=== PATIENT | female | born 2000 | race Caucasian/White ===

== ENCOUNTER 2023-01-08 20:21 | Emergency (ER) | payer BC, MEDICAID ==
[~2023-01-08] VITALS: Ht 160 cm; Wt 87.9 kg
[2023-01-08] MEDS ORDERED: DICYCLOMINE 10 MG/ML (BENTYL) 2 ML AMP IM STA (20:42)
[2023-01-08] MEDS ORDERED: ONDANSETRON 4 MG/2 ML (SDV) Z0FRAN IVP STA (20:42)
[2023-01-08] MEDS ORDERED: NS IV 1000 ML 1,000 ML IV STA (20:42)
--- NOTE | 2023-01-08 20:50 | ED Abdominal Pain ---
General Chief Complaint: Abdominal/GI Problems Stated Complaint: DIZZY,NAUSEA,DRY HEAVING,SOB Nursing Triage Note: patient complaint of lower abdominal pain, for two days. patient states she is "vomitting but nothing is coming out" Source of Information: Patient History of Present Illness Date Seen by Provider: Jan 08, 2023 Time Seen by Provider: 20:32 Initial Comments 22-year-old female presenting with complaints of 2 days of nausea with dry heaves and lower abdominal pain. She just finished antibiotics for strep throat 3 days ago. She just moved here to [place] and has not established care with a primary care provider. She denies any surgeries on her abdomen in the past. She just came off of her last menstrual cycle 4 days ago. She denies any pain or burning with urination, vaginal bleeding, vaginal discharge, constipation, d iarrhea, fever, chills. Timing/Duration: 2-3 Days Severity/Quality: Severe (8 out of 10 ), Aching Location: RLQ, LLQ Radiation: No Radiation Activities at Onset: None Modifying Factors: Worsens With Movement Associated Symptoms: Back Pain (feels like the low pelvic pain goes through to her back at times); No Chest Pain, No Diaphoresis, No Fever/Chills, No Fatigue, No Headache, No Heartburn; Nausea/Vomiting (dry heaves with nausea); No Rash, No Shortness of Air, No Swelling/Mass in Abdomen, No Syncope, No Weakness Allergies and Home Medications Allergies Coded Allergies: No Known Drug Allergies (Unverified , 01/08/23) Patient Home Medication List Home Medication List Reviewed: Yes Dicyclomine HCl (Dicyclomine HCl) 10 Mg Capsule, 10 MG PO Q6H PRN for abdominal pain/nausea Prescribed by: WILMER DUPONT on 01/08/232201 Ondansetron (Ondansetron Odt) 4 Mg Tab.rapdis, 4 MG PO Q6H PRN for NAUSEA/VOMITING Prescribed by: WILMER DOMINGUEZRT on 01/08/232201 Review of Systems Review of Systems Constitutional: No chills, No fever EENTM: See HPI Respiratory: No Symptoms Reported Cardiovascular: No Symptoms Reported Gastrointestinal: See HPI Genitourinary: See HPI; Denies Hematuria, Denies Pain Musculoskeletal: see HPI Skin: No change in color, No rash Psychiatric/Neurological: Anxiety Endocrine: No Symptoms Reported Hematologic/Lymphatic: No Symptoms Reported Past Zspsuvb-Cuzwjk-Lzozrx Hx Immunizations Up To Date Influenza Vaccine Up-to-Date: No; Not Current First/Initial COVID19 Vaccinat: na Second COVID19 Vaccination Buck: na Physical Exam Vital Signs Vital Signs - First Documented 01/08/23 20:35 Temp 36.9 Pulse 84 Resp 20 B/P (MAP) 134/72 (92) Pulse Ox 99 O2 Delivery Room Air Capillary Refill : Less Than 3 Seconds Height/Weight/BMI Height: '" Weight: lbs. oz. kg; 34.00 BMI Method: General Appearance: WD/WN, no apparent distress, obese, other (appears anxious) HEENT: PERRL/EOMI; No photophobia; pharyngeal erythema; No tonsillar exudate; other (Enlarged tonsils with erythema but no exudate.) Neck: non-tender, full range of motion, supple, normal inspection Respiratory: chest non-tender, lungs clear, normal breath sounds, no respiratory distress, no accessory muscle use Cardiovascular: normal peripheral pulses, regular rate, rhythm Gastrointestinal: normal bowel sounds, soft, no pulsatile mass; No distended, No guarding, No rebound; tenderness (complains of tenderness with palpation along lower abdomen in RLQ and LLQ. No rebound or guarding) Rectal: deferred Extremities: normal range of motion, non-tender, normal capillary refill Back: no CVA tenderness Neurologic/Psychiatric: alert, oriented x 3 Skin: normal color, warm/dry Progress/Results/Core Measures Results/Orders Lab Results Laboratory Tests Test 01/08/23 20:50 01/08/23 20:55 Range/Units Urine Color YELLOW Urine Clarity SL CLOUDY Urine pH 7.5 5-9 Urine Specific [place] 1.015 L 1.016-1.022 Urine Protein NEGATIVE NEGATIVE Urine Glucose (UA) NEGATIVE NEGATIVE Urine Ketones NEGATIVE NEGATIVE Urine Nitrite NEGATIVE NEGATIVE Urine Bilirubin NEGATIVE NEGATIVE Urine Urobilinogen 0.2 < = 1.0 MG/DL Urine Leukocyte Esterase NEGATIVE NEGATIVE Urine RBC (Auto) NEGATIVE NEGATIVE Urine RBC NONE /HPF Urine WBC 2-5 /HPF Urine Squamous Epithelial Cells 10-25 H /HPF Urine Crystals NONE /LPF Urine Bacteria TRACE /HPF Urine Casts NONE /LPF Urine Mucus SMALL H /LPF Urine Culture Indicated NO White Blood Count 15.7 H 4.3-11.0 10^3/uL Red Blood Count 5.18 H 3.80-5.11 10^6/uL Hemoglobin 14.2 11.5-16.0 g/dL Hematocrit 43 35-52 % Mean Corpuscular Volume 83 80-99 fL Mean Corpuscular Hemoglobin 27 25-34 pg Mean Corpuscular Hemoglobin Concent 33 32-36 g/dL Red Cell Distribution Width 12.9 10.0-14.5 % Platelet Count 309 130-400 10^3/uL Mean Platelet Volume 9.9 9.0-12.2 fL Immature Granulocyte % (Auto) 0 % Neutrophils (%) (Auto) 56 42-75 % Lymphocytes (%) (Auto) 35 12-44 % Monocytes (%) (Auto) 6 0-12 % Eosinophils (%) (Auto) 2 0-10 % Basophils (%) (Auto) 1 0-10 % Neutrophils # (Auto) 8.7 H 1.8-7.8 10^3/uL Lymphocytes # (Auto) 5.6 H 1.0-4.0 10^3/uL Monocytes # (Auto) 1.0 0.0-1.0 10^3/uL Eosinophils # (Auto) 0.3 0.0-0.3 10^3/uL Basophils # (Auto) 0.1 0.0-0.1 10^3/uL Immature Granulocyte # (Auto) 0.1 0.0-0.1 10^3/uL Neutrophils % (Manual) 55 % Lymphocytes % (Manual) 36 % Monocytes % (Manual) 7 % Eosinophils % (Manual) 2 % Platelet Estimate NORMAL Blood Morphology Comment NORMAL Sodium Level 138 135-145 MMOL/L Potassium Level 3.5 L 3.6-5.0 MMOL/L Chloride Level 102 98-107 MMOL/L Carbon Dioxide Level 27 21-32 MMOL/L Anion Gap 9 5-14 MMOL/L Blood Urea Nitrogen 8 7-18 MG/DL Creatinine 0.91 0.60-1.30 MG/DL Estimat Glomerular Filtration Rate 91 BUN/Creatinine Ratio 9 Glucose Level 85 70-105 MG/DL Calcium Level 9.3 8.5-10.1 MG/DL Corrected Calcium 9.3 8.5-10.1 MG/DL Total Bilirubin 0.2 0.1-1.0 MG/DL Aspartate Amino Transf (AST/SGOT) 20 5-34 U/L Alanine Aminotransferase (ALT/SGPT) 30 0-55 U/L Alkaline Phosphatase 121 40-136 U/L Total Protein 7.3 6.4-8.2 GM/DL Albumin 4.0 3.2-4.5 GM/DL Lipase 26 8-78 U/L My Orders Orders - WILMER DUPONT MD Comprehensive Metabolic Panel (01/08/23 20:42) Lipase (01/08/23 20:42) Ua Culture If Indicated (01/08/23 20:42) Ed Iv/Invasive Line Start (01/08/23 20:42) Cbc With Automated Diff (01/08/23 20:42) Ct Abdomen/Pelvis W (01/08/23 20:42) Urine Bedside (01/08/23 20:42) Ns Iv 1000 Ml (Sodium Chloride 0.9%) (01/08/23 20:42) Ondansetron Injection (Zofran Injectio (01/08/23 20:42) Dicyclomine Injection (Bentyl Injection) (01/08/23 20:42) Iohexol Injection (Omnipaque 350 Mg/Ml 1 (01/08/23 21:00) Received Contrast (Hold Metformin- Contr (01/08/23 21:00) Sodium Chloride Flush (Catheter Flush Sy (01/08/23 21:00) Ns (Ivpb) (Sodium Chloride 0.9% Ivpb Bag (01/08/23 21:00) Manual Differential (01/08/23 20:55) Rx-Ondansetron Po (Rx-Zofran Po) (01/08/23 22:00) Rx-Dicyclomine Capsule (Rx-Bentyl Capsul (01/08/23 22:00) Medications Given in ED Current Medications Medications Dose Ordered Sig/Sherif Route Start Time Stop Time Status Last Admin Dose Admin Iohexol 100 ml ONCE ONCE IV 01/08/23 21:00 01/08/23 21:01 DC 01/08/23 21:21 80 ML Sodium Chloride 10 ml NEEDED PRN IV 01/08/23 21:00 01/08/23 21:21 10 ML Sodium Chloride 100 ml ONCE ONCE IV 01/08/23 21:00 01/08/23 21:01 DC 01/08/23 21:21 100 ML Vital Signs/I&O 01/08/23 20:35 Temp 36.9 Pulse 84 Resp 20 B/P (MAP) 134/72 (92) Pulse Ox 99 O2 Delivery Room Air Blood Pressure Mean: 92 Progress Progress Note #1: Progress Note Potential diagnosis of gastritis, gastroenteritis, constipation, ovarian cyst, appendicitis, cystitis, pyelonephritis. Obtain urine to do a urine test as well as look at the urinalysis for signs of infection. Peripheral IV access to be able to give normal saline 1 L IV fluid bolus for hydration, Zofran 4 mg IV for nausea and vomiting, Bentyl 20 mg IM for abdominal pain and cramping. Send labs for complete blood count, comprehensive metabolic profile, lipase. CT scan of the abdomen pelvis with IV contrast looking for signs of appendicitis, diverticulitis, colitis, ovarian cyst, free fluid in the pelvis. Progress Note #2: Progress Note Complete blood count showed mild elevation of her white blood cells to 12.7. Her comprehensive metabolic profile did not show any acute significant abnormality. Her urinalysis was not showing nitrites, leukocyte esterase, bacteria to indicate infection. Awaiting CT report from radiologist but my personal review and interpretation was the CT abdomen/pelvis with IV contrast d id not show free air or obstruction. No inflammation or fluid build up in RLQ to indicate appendicitis. Progress Note #3: Time: 21:48 Progress Note I reviewed the radiologist report at [address] scan of the abdomen and pelvis with IV contrast. There was no acute appendicitis or bowel obstruction. She did have some cholelithiasis but no indications of cholecystitis. Patient reports that her symptoms were resolved with treatment here in the ED. Counseled on follow-up and return precautions. Advised to take Zofran 4 mg every 6 hours. Nausea and vomiting. She can also take dicyclomine 10 mg p.o. every 6 hours as needed abdominal pain/nausea. Encouraged to try getting some evkp-otf-uvnmiud probiotics to help balance out the bacteria in her gut since she was just on antibiotics. In terms of the gallstones that were seen on CT she should try and follow a low-fat bland diet. If she continues to have symptoms after she gets established with a primary care provider they could see about ordering an ultrasound of her gallbladder or possibly a nuclear medicine test of her gallbladder. Given information for the [facility] clinic for follow-up. Diagnostic Imaging Diagonstic Imaging: CT Plain Films/CT/US/NM/MRI: abdomen, pelvis Comments NAME: ROSI COOK REC#: [id number] PT STATUS: REG ER : 2000 PHYSICIAN: WILMER DUPONT MD ADMIT DATE: 01/08/23/ER FS Draft Date of Exam:01/08/23 CT ABDOMEN/PELVIS W PROCEDURE: CT abdomen and pelvis with contrast. TECHNIQUE: Multiple contiguous axial images were obtained through the abdomen and pelvis after administration of intravenous contrast. Auto Exposure Controls were utilized during the CT exam to meet ALARA standards for radiation dose reduction. All CT scans use one or more of the following dose optimizing techniques: automated exposure control, MA and/or KvP adjustment based on patient size and exam type or iterative reconstruction. INDICATION: Nausea and vomiting FINDINGS: The appendix well visualized and normal. There is no small or large bowel obstruction. No abnormal fecal loading. No pneumatosis or free gas. There are multiple stones within the nondistended gallbladder. The gallbladder wall non-thickened. No pericholecystic edema. The liver and bile ducts normal. Spleen, adrenals, pancreas, and unobstructed kidneys appeared normal. The aortoiliac and mesenteric vessels patent and nonaneurysmal. No perienteric or pericolonic edema. No focal inflammatory changes identified. The lung bases and bony structures nonacute. Unobstructed kidneys normal. IMPRESSION: Cholelithiasis. No acute appearing abdominal pelvic abnormality. Dictated on workstation # [id number] Dict: 01/08/232126 Trans: 01/08/232145 [facility] [id number] Interpreted by: ISHAAN GREENFIELD Electronically signed by: Reviewed: Reviewed by Me (I reviewed the radiologist report at 3169.) Departure Impression Primary Impression: Lower abdominal pain Additional Impressions: Nausea Gallstones Disposition: 01 HOME, SELF-CARE Condition: Stable Departure-Patient Inst. Decision time for Depature: 21:58 Referrals: NO,LOCAL PHYSICIAN (PCP) Primary Care Physician [facility] Patient Instructions: Gallstones ED, Gallbladder Diet, Nausea and Vomiting, Adult ED Add. Discharge Instructions: Stay well-hydrated and drink plenty of fluids. You can use the dissolving nausea tablets to help with keep your stomach settled. The Bentyl or dicyclomine will help with abdominal pain and spasms. It also can help with nausea. Try and follow a low-fat bland diet in case any of those symptoms are from your gallbladder. Get established with a primary care provider and follow-up. If you are continuing of symptoms they may want to get you set up for an ultrasound of your gallbladder or a nuclear medicine scan of your gallbladder to look for the gallbladder not functioning correctly. Consider taking probiotics to help Restore the good bacteria that are usually in your gut helping with digestion. The antibiotics will kill off your good gut bacteria as well as the infection you had in your throat and tonsils. All discharge instructions reviewed with patient and/or family. Voiced understanding. Scripts Ondansetron (Ondansetron Odt) 4 Mg Tab.rapdis 4 MG PO Q6H PRN for NAUSEA/VOMITING for 3 Days, #12 TAB 0 Refills Prov: WILMER DUPONT MD 01/08/23 Dicyclomine HCl (Dicyclomine HCl) 10 Mg Capsule 10 MG PO Q6H PRN for abdominal pain/nausea for 7 Days, #28 CAP 0 Refills Prov: WILMER DUPONT MD 01/08/23 WILMER DUPONT MD Jan 08, 2023 20:50
[2023-01-08] MEDS ORDERED: HOLD METFORMIN - RECEIVED CONTRAST 20 ML VIAL IV SCH (21:00)
[2023-01-08] MEDS ORDERED: NS 100 ML (IVPB) BAG IV ONE (21:00)
[2023-01-08] MEDS ORDERED: IOHEXOL 350 MG/ML 100 ML (OMNIPAQUE 350) VIAL IV ONE (21:00)
[2023-01-08] MEDS ORDERED: CATHETER FLUSH 10 ML SYR IV PRN (21:00)
[2023-01-08 21:10] LABS: BASOPHILS # (AUTO) 0.1 10^3/uL (0.0-0.1); BASOPHILS % (AUTO) 1 % (0-10); EOSINOPHILS # (AUTO) 0.3 10^3/uL (0.0-0.3); EOSINOPHILS % (AUTO) 2 % (0-10); HEMATOCRIT 43 % (35-52); HEMOGLOBIN 14.2 g/dL (11.5-16.0); LYMPHOCYTES # (AUTO) 5.6 10^3/uL (1.0-4.0); LYMPHOCYTES % (AUTO) 35 % (12-44); MEAN CORPUSCULAR HEMOGLOBIN 27 pg (25-34); MEAN CORPUSCULAR HGB CONC 33 g/dL (32-36); MEAN CORPUSCULAR VOLUME 83 fL (80-99); MEAN PLATELET VOLUME 9.9 fL (9.0-12.2); MONOCYTES % (AUTO) 6 % (0-12); NEUTROPHILS # (AUTO) 8.7 10^3/uL (1.8-7.8); NEUTROPHILS % (AUTO) 56 % (42-75); PLATELET COUNT 309 10^3/uL (130-400); WHITE BLOOD COUNT 15.7 10^3/uL (4.3-11.0)
[2023-01-08 21:12] LABS: BILIRUBIN,URINE NEGATIVE (NEGATIVE); CLARITY,URINE SL CLOUDY; COLOR,URINE YELLOW; GLUCOSE, URINE (UA) NEGATIVE (NEGATIVE); KETONES,URINE NEGATIVE (NEGATIVE); LEUKOCYTE ESTERASE ,URINE NEGATIVE (NEGATIVE); NITRITE,URINE NEGATIVE (NEGATIVE); PH,URINE 7.5 (5-9); PROTEIN,URINE NEGATIVE (NEGATIVE)
[2023-01-08 21:20] LABS: BACTERIA,URINE TRACE /HPF
[2023-01-08 21:33] LABS: EOSINOPHILS % (MANUAL) 2 %; LYMPHOCYTES % (MANUAL) 36 %; MONOCYTES % (MANUAL) 7 %; NEUTROPHILS % (MANUAL) 55 %; PLATELET ESTIMATE NORMAL; RBC MORPH NORMAL
[2023-01-08 21:34] LABS: BILIRUBIN,TOTAL 0.2 MG/DL (0.1-1.0); CALCIUM 9.3 MG/DL (8.5-10.1); CREATININE SERUM 0.91 MG/DL (0.60-1.30); POTASSIUM 3.5 MMOL/L (3.6-5.0)
[2023-01-08 21:35] LABS: TOTAL PROTEIN 7.3 GM/DL (6.4-8.2)
--- NOTE | 2023-01-08 21:46 | Diagnostic Imaging Report ---
PROCEDURE: CT abdomen and pelvis with contrast. TECHNIQUE: Multiple contiguous axial images were obtained through the abdomen and pelvis after administration of intravenous contrast. Auto Exposure Controls were utilized during the CT exam to meet ALARA standards for radiation dose reduction. All CT scans use one or more of the following dose optimizing techniques: automated exposure control, MA and/or KvP adjustment based on patient size and exam type or iterative reconstruction. INDICATION: Nausea and vomiting FINDINGS: The appendix well visualized and normal. There is no small or large bowel obstruction. No abnormal fecal loading. No pneumatosis or free gas. There are multiple stones within the nondistended gallbladder. The gallbladder wall non-thickened. No pericholecystic edema. The liver and bile ducts normal. Spleen, adrenals, pancreas, and unobstructed kidneys appeared normal. The aortoiliac and mesenteric vessels patent and nonaneurysmal. No perienteric or pericolonic edema. No focal inflammatory changes identified. The lung bases and bony structures nonacute. Unobstructed kidneys normal. IMPRESSION: Cholelithiasis. No acute appearing abdominal pelvic abnormality. Dictated by: Dictated on workstation # [id number]
[2023-01-08] MEDS ORDERED: RX-DICYCLOMINE 10 MG (BENTYL) CAP PPK#4 PO PRN (22:00)
[2023-01-08] MEDS ORDERED: RX-ONDANSETRON 4 MG ODT (ZOFRAN) PPK #4 PO PRN (22:00)
[2023-01-08] MEDS ORDERED: ONDA4TAB11 PO (22:02)
[2023-01-08] MEDS ORDERED: DICY10CA12 PO (22:02)
[2023-01-08 22:15] VITALS: BP 134/72
== END 2023-01-08 22:20 | disposition home or self-care (01) ==
LOC: ER FS 20:24
DX: K80.20 Calculus of gallbladder without cholecystitis without obstruction (principal); D72.829 Elevated white blood cell count, unspecified; Z28.310 Unvaccinated for COVID-19
CPT/HCPCS: 36415; 74177; 80053; 81000; 83690; 84703; 85007; 85027

== ENCOUNTER 2023-02-17 18:21 | Emergency (ER) | payer SELFPAY ==
[~2023-02-17] VITALS: Ht 160 cm; Wt 87.0 kg
[~2023-02-17 18:21] MED LIST: DICY10CA12 PO; ONDA4TAB11 PO
[2023-02-17 18:40] LABS: BILIRUBIN,URINE NEGATIVE (NEGATIVE); CLARITY,URINE CLEAR; COLOR,URINE YELLOW; GLUCOSE, URINE (UA) NEGATIVE (NEGATIVE); KETONES,URINE NEGATIVE (NEGATIVE); LEUKOCYTE ESTERASE ,URINE NEGATIVE (NEGATIVE); NITRITE,URINE NEGATIVE (NEGATIVE); PROTEIN,URINE NEGATIVE (NEGATIVE)
[2023-02-17 18:43] LABS: BACTERIA,URINE MODERATE /HPF; SQUAMOUS EPITHELIAL CELL,UR >50 /HPF
[2023-02-17] MEDS ORDERED: CEPH500T PO (18:57)
--- NOTE | 2023-02-17 18:58 | ED Back Pain ---
General Chief Complaint: - Reproductive Stated Complaint: LOWER BACK PAIN Nursing Triage Note: Patient reports she is approximately 6 weeks , states she has had lower mid back and burning with urination for 3 days. Source of Information: Patient Exam Limitations: No Limitations History of Present Illness Date Seen by Provider: Feb 17, 2023 Time Seen by Provider: 18:43 Initial Comments 23-year-old female who is 6 weeks comes in today for low back burning and dysuria for 3 days. No vaginal symptoms including discharge odor or bleeding. No anterior abdominal pain or cramping. No fevers chills nausea vomiting. All other systems reviewed and negative except documented per HPI. Voice recognition software was used to help create this chart Allergies and Home Medications Allergies Coded Allergies: No Known Drug Allergies (Unverified , 01/08/23) Patient Home Medication List Home Medication List Reviewed: Yes Dicyclomine HCl (Dicyclomine HCl) 10 Mg Capsule, 10 MG PO Q6H PRN for abdominal pain/nausea Prescribed by: WILMER DOMINGUEZRT on 01/08/232201 Ondansetron (Ondansetron Odt) 4 Mg Tab.rapdis, 4 MG PO Q6H PRN for NAUSEA/VOMITING Prescribed by: WILMER Cleaning ENYART on 01/08/232201 Review of Systems Constitutional: see HPI Past Bwitvrl-Uzxumv-Daembq Hx Patient Social History Tobacco Use?: No Substance use?: No Alcohol Use?: No Pt feels they are or have been: No Immunizations Up To Date First/Initial COVID19 Vaccinat: na Second COVID19 Vaccination Buck: na Third COVID19 Vaccination Date: na Family Medical History Reviewed Nursing Family Hx No Pertinent Family Hx Physical Exam Vital Signs Vital Signs - First Documented 02/17/23 18:29 Temp 36.2 Pulse 84 Resp 16 B/P (MAP) 123/55 (77) Pulse Ox 100 O2 Delivery Room Air Capillary Refill : Less Than 3 Seconds Height, Weight, BMI Height: '" Weight: lbs. oz. kg; 33.00 BMI Method: General Appearance: No Apparent Distress, WD/WN HEENT: Normal ENT Inspection, Pharynx Normal Neck: Full Range of Motion, Non Tender Cardiovascular: Regular Rate, Rhythm, No Murmur Respiratory: Chest Non Tender, Lungs Clear, Normal Breath Sounds Gastrointestinal: Normal Bowel Sounds, No Organomegaly, Non Tender, Soft Extremity: Normal Capillary Refill, Non Tender, No Calf Tenderness Neurologic/Psychiatric: Alert, Oriented x3 Skin: Normal Color, Warm/Dry Progress/Results/Core Measures Results/Orders Lab Results Laboratory Tests Test 02/17/23 18:29 Range/Units Urine Color YELLOW Urine Clarity CLEAR Urine pH 6.0 5-9 Urine Specific [place] 1.020 1.016-1.022 Urine Protein NEGATIVE NEGATIVE Urine Glucose (UA) NEGATIVE NEGATIVE Urine Ketones NEGATIVE NEGATIVE Urine Nitrite NEGATIVE NEGATIVE Urine Bilirubin NEGATIVE NEGATIVE Urine Urobilinogen 0.2 < = 1.0 MG/DL Urine Leukocyte Esterase NEGATIVE NEGATIVE Urine RBC (Auto) NEGATIVE NEGATIVE Urine RBC NONE /HPF Urine WBC 5-10 H /HPF Urine Squamous Epithelial Cells >50 H /HPF Urine Crystals NONE /LPF Urine Bacteria MODERATE H /HPF Urine Casts NONE /LPF Urine Mucus LARGE H /LPF Urine Culture Indicated NO My Orders Orders - MERLINLO BORJAS DO Ua Culture If Indicated (02/17/23 18:34) Urine Bedside (02/17/23 18:34) Vital Signs/I&O 02/17/23 18:29 Temp 36.2 Pulse 84 Resp 16 B/P (MAP) 123/55 (77) Pulse Ox 100 O2 Delivery Room Air Blood Pressure Mean: 77 Departure Communication (Admissions) Patient is hemodynamically stable. She has no anterior pain, no vaginal symptoms. No discharge or odor or bleeding. She has low back pain and dysuria. Urine consistent with urinary tract infection of the catch is somewhat dirty. We will treat her conservatively with Keflex. Given her first dose p.o. here and discharged with a prescription for the same. Discharged in stable condition and close follow-up. Impression Primary Impression: UTI (urinary tract infection) Qualified Codes: N30.01 - Acute cystitis with hematuria Disposition: HOME, SELF-CARE Condition: Stable Departure-Patient Inst. Referrals: NO,LOCAL PHYSICIAN (PCP) Primary Care Physician Patient Instructions: Urinary Tract Infection, Adult ED Add. Discharge Instructions: Take the antibiotics as prescribed until they are gone. Increase your fluids at home and rest. Should your symptoms persist I recommend you follow-up with your primary doctor. Establish care with an OB at your earliest convenience. All discharge instructions reviewed with patient and/or family. Voiced un derstanding. Scripts Cephalexin (Cephalexin) 500 Mg Tablet 500 MG PO BID for 7 Days, #14 TAB Prov: LO BOYER DO 02/17/23 LO BOYER DO Feb 17, 2023 18:58
[2023-02-17] MEDS ORDERED: CEPHALEXIN 250 MG (KEFLEX) CAP PO SCH (19:00)
[2023-02-17 19:04] VITALS: BP 120/61
== END 2023-02-17 19:04 | disposition home or self-care (01) ==
LOC: EDUNIT# 18:21 → ER FS 18:23
DX: O23.41 Unspecified infection of urinary tract in pregnancy, first trimester (principal); N39.0 Urinary tract infection, site not specified; Z3A.01 Less than 8 weeks gestation of pregnancy; Z28.310 Unvaccinated for COVID-19
CPT/HCPCS: 81000; 84703; 99283

== ENCOUNTER → 2023-05-20 | Outpatient (CLI) | payer MEDICAID ==
[~2023-05-20] MED LIST changes: +CEPH500T PO
--- NOTE | 2023-05-20 18:28 | Diagnostic Imaging Report ---
INDICATION: Left ankle pain. AP, oblique, and lateral views of the left ankle are obtained. FINDINGS: No fracture or acute bony abnormality is seen. Joint spaces are unremarkable. IMPRESSION: Negative left ankle. Dictated by: Dictated on workstation # [id number]
== END ==
LOC: RAD FS 14:28
PROVIDERS: ATTEND Family Medicine
DX: Z34.02 Encounter for supervision of normal first pregnancy, second trimester (principal); S93.422A Sprain of deltoid ligament of left ankle, initial encounter; X58.XXXA Exposure to other specified factors, initial encounter
CPT/HCPCS: 73610

== ENCOUNTER 2023-09-21 14:30 | Outpatient (CLI) | payer MEDICAID, OTHER ==
[~2023-09-21] VITALS: Ht 161.3 cm; Wt 97.8 kg
[~2023-09-21 14:30] MED LIST changes: +DICY-11 PO; -DICY10CA12 PO
[2023-09-21 14:50] VITALS: BP 110/57
[2023-09-21 14:55] VITALS: BP 110/57
[2023-09-21 15:11] VITALS: BP 99/54
[2023-09-21 15:23] VITALS: BP 98/53
[2023-09-21 15:27] VITALS: BP 100/52
[2023-09-21] MEDS ORDERED: PREN1TAB19 PO (16:00)
[2023-09-21] MEDS ORDERED: OMEP20CA18 PO (16:00)
[2023-09-21 16:25] LABS: BACTERIA,URINE NEGATIVE /HPF; BILIRUBIN,URINE NEGATIVE (NEGATIVE); CLARITY,URINE CLEAR; COLOR,URINE YELLOW; GLUCOSE, URINE (UA) NEGATIVE (NEGATIVE); KETONES,URINE NEGATIVE (NEGATIVE); LEUKOCYTE ESTERASE ,URINE NEGATIVE (NEGATIVE); NITRITE,URINE NEGATIVE (NEGATIVE); PROTEIN,URINE NEGATIVE (NEGATIVE)
[2023-09-21] MEDS ORDERED: VALA500T4 PO (17:44)
[2023-09-21 17:55] VITALS: BP 100/52
--- NOTE | 2023-09-21 23:27 | OB Triage Report ---
Standard Progress Note Progress Notes/Assess & Plan Date Seen by a Provider: Sep 21, 2023 Time Seen by a Provider: 16:11 Expected Date of Delivery: Oct 05, 2023 Gestational Age in Weeks: 38 Gestational Age in Days: 0 LMP/OSMANY Comment: This 23yo G1 presents to L&D @38w EGA with c/o cramping and elevated temp and tachycardia per RN FHR 165 Reactive TOCOs irregular CVX FT per RN COVID-19 positive Flu negative Pt given PO fluid RN stated that pt feeling a little better Denies SOA, CP CTXs (and no cervical change per RN) POx 96%RA Progress/Assessment & Plan IUP @ 38wk COVID 19 positive FHR reassuring no cervical change Will DC to home Treat COVID 19 symptomatically- PO fluids Tylenol Instructed to Return if she becomes SOA, CP, Decreased movement (instructed on Kick counts) or temp remains elevated (even with Tylenol) SUMMER HERNANDEZ DO Sep 21, 2023 23:27
== END 2023-09-21 17:55 | disposition home or self-care (01) ==
LOC: WSo 14:30 → LDRP 14:31 → WSo 17:55
PROVIDERS: ATTEND Obstetrics & Gynecology
DX: O26.899 Other specified pregnancy related conditions, unspecified trimester (principal); R10.9 Unspecified abdominal pain; R50.9 Fever, unspecified; R00.0 Tachycardia, unspecified; Z3A.38 38 weeks gestation of pregnancy
CPT/HCPCS: 81000; 87636; G0463; 99214

== ENCOUNTER 2023-10-02 15:41 | Inpatient (IN) | payer MEDICAID ==
[~2023-10-02] VITALS: Ht 160 cm; Wt 96.6 kg
[2023-10-02] VITALS (17 sets, daily range): BP systolic 106–136; BP diastolic 56–96
[~2023-10-02 15:41] MED LIST changes: +OMEP20CA18 PO; +PREN1TAB19 PO; +VALA500T4 PO
[2023-10-02 16:28] LABS: CLARITY,URINE CLEAR; COLOR,URINE YELLOW
[2023-10-02 16:29] LABS: BACTERIA,URINE TRACE /HPF; BILIRUBIN,URINE NEGATIVE (NEGATIVE); GLUCOSE, URINE (UA) TRACE (NEGATIVE); KETONES,URINE NEGATIVE (NEGATIVE); LEUKOCYTE ESTERASE ,URINE NEGATIVE (NEGATIVE); NITRITE,URINE NEGATIVE (NEGATIVE); PROTEIN,URINE NEGATIVE (NEGATIVE); RBC,URINE RARE /HPF; SQUAMOUS EPITHELIAL CELL,UR 0-2 /HPF; WBC,URINE RARE /HPF
[2023-10-02] MEDS ORDERED: D5 LR 1,000 ML IV SOLN 1,000 ML IV ONE (17:27)
[2023-10-02] MEDS ORDERED: MINERAL OIL 30 ML UDC TOP PRN (17:30)
[2023-10-02] MEDS ORDERED: LACTATED RINGERS 1,000 ML 500 ML IV PRN (17:30)
[2023-10-02 17:31] LABS: BASOPHILS # (AUTO) 0.1 10^3/uL (0.0-0.1); BASOPHILS % (AUTO) 0 % (0-10); EOSINOPHILS # (AUTO) 0.2 10^3/uL (0.0-0.3); EOSINOPHILS % (AUTO) 1 % (0-10); HEMATOCRIT 44 % (35-52); HEMOGLOBIN 14.4 g/dL (11.5-16.0); LYMPHOCYTES # (AUTO) 2.1 10^3/uL (1.0-4.0); LYMPHOCYTES % (AUTO) 15 % (12-44); MEAN CORPUSCULAR HEMOGLOBIN 29 pg (25-34); MEAN CORPUSCULAR HGB CONC 33 g/dL (32-36); MEAN CORPUSCULAR VOLUME 88 fL (80-99); MEAN PLATELET VOLUME 10.9 fL (9.0-12.2); MONOCYTES # (AUTO) 0.8 10^3/uL (0.0-1.0); MONOCYTES % (AUTO) 6 % (0-12); NEUTROPHILS % (AUTO) 78 % (42-75); PLATELET COUNT 321 10^3/uL (130-400); WHITE BLOOD COUNT 14.2 10^3/uL (4.3-11.0)
[2023-10-02] MEDS: D5 LR 1,000 ML IV SOLN 1,000 ML IV SCH (17:31)
[2023-10-02] MEDS ORDERED: OXYTOCIN DRIP PRE-MIX 500 ML IV ONE ×2 (19:24→20:04)
[2023-10-02] MEDS ORDERED: LIDOCAINE 2% w/EPI 1:200,000 20 ML VIAL ONE (19:25)
[2023-10-02] MEDS ORDERED: HYDROmorphone INJECTION 2 MG/ML VIAL ONE (19:39)
[2023-10-02] MEDS ORDERED: METHYLERGONOVINE INJ 0.2 MG/ML AMP IM PRN (20:15)
[2023-10-02] MEDS ORDERED: CARBOPROST 250 MCG/ML 1 ML AMPULE IM PRN (20:15)
[2023-10-02] MEDS ORDERED: Tetanus/Diphtheria/Pertussis (Acell) ADULT Vaccine 0.5 ML IM ONE (20:15)
[2023-10-02] MEDS ORDERED: DIBUCAINE 1% OINTMENT 28 GM TUBE TOP PRN (20:15)
[2023-10-02] MEDS ORDERED: NALOXONE 0.4 MG/ML 1 ML VIAL IV PRN (20:15)
[2023-10-02] MEDS ORDERED: BENZOCAINE/MENTHOL (DERMOPLAST) 56 ML CAN TP PRN (20:15)
[2023-10-02] MEDS ORDERED: OXYTOCIN DRIP PRE-MIX 500 ML IV SCH ×2 (20:15→22:00)
[2023-10-02] MEDS ORDERED: TRANEXAMIC ACID INJECTION 1,000 MG in NS (IVPB) 50 ML 50 ML IV ONE (20:15)
[2023-10-02] MEDS ORDERED: WITCH HAZEL(TUCKS) 40 EA JAR TOP PRN (20:15)
[2023-10-02] MEDS ORDERED: MEASLES, MUMPS, RUBELLA VACCINE (MMR) SQ ONE (20:15)
--- NOTE | 2023-10-02 20:18 | History & Physical-OB ---
OB - Chief Complaint & HPI Date/Time Date of Admission: Date of Admission: Oct 02, 2023 at 16:25 Date seen by a Provider: Oct 02, 2023 Time Seen by a Provider: 17:20 Chief Complaint/History OB-Reason for Admission/Chief: Onset of Labor Hx : 1 Hx Para: 0 Expected Date of Delivery: Oct 05, 2023 Gestational Age in Weeks: 39 Gestational Age in Days: 4 Admission Nurse Assessment Rev: Yes History of Labs O+ GBS neg Hep B neg HIV neg RPR neg R-unknown Other This 23-year-old G1, P0 presents to labor and delivery at 39 weeks 4 days EGA with complaint of contractions and pelvic pressure. When she arrived to the labor and delivery unit she was 3 cm per RN. She denies any loss of fluid or vaginal bleeding. Her has been significant for being positive for COVID-19 about 1 week ago Allergies and Home Medications Allergies Coded Allergies: No Known Drug Allergies (Unverified , 01/08/23) Patient Home Medication List Home Medication List Reviewed: Yes Omeprazole (Omeprazole) 20 Mg Capsule.dr, 20 MG PO DAILY, (Reported) Entered as Reported by: MEHRDAD FELICIANO on 09/21/231599 Last Action: Reviewed Vit/Iron Fumarate/FA ( Vitamins Tablet) 28 Mg Iron-800 Mcg Tablet, 1 EACH PO DAILY, (Reported) Entered as Reported by: MEHRDAD FELICIANO on 09/21/231599 Last Action: Reviewed Valacyclovir HCl (Valtrex) 500 Mg Tablet, 500 MG PO BID Prescribed by: MEHRDAD FELICIANO on 09/21/23 0388 Last Action: Reviewed OB - History Hx of Present Care: Yes Ultrasounds: Normal mid trimester US Obstetrical Complications: None Medical Complications: None Other Concerns: Pt was + for COVID 1 wk ago Information Induced Hypertension: No Maternal Gestational Diabetes: No Hemorrhage: No Obstetrical History Hx : 1 Hx Para: 0 Hx Total # of Abortions (Spona: 0 Patient Past Medical History none Social History/Family History Alcohol Use: Denies Use Recreational Drug Use: No 2nd Hand Smoke Exposure: No Immunizations Influenza Vaccine Up-to-Date: Yes; Up-to-Date First/Initial COVID19 Vaccine: na Second COVID19 Vaccination: na Third COVID19 Vaccination Date: na Hepatitis A: No Hepatitis B: Yes Rubella: immune RPR/VDRL: Negative GBS Status: Negative HBsAG: Unknown OB - Admission Exam Physical Exam Vitals: Vital Signs 10/02/23 10/02/23 16:26 18:43 Temp 36.6 Pulse 106 Resp 20 B/P (MAP) 125/58 (80) Pulse Ox 94 O2 Delivery Room Air HEENT: NCAT Heart: Rhythm Normal Lungs: Clear Abdomen: Gravid Extremities: Normal Reflexes: Normal Cervical Dilatation: 3cm Effacement: 50% Station: -3 Membranes: Intact Heart Rate: 140's Accelerations: Accelerations Present Decelerations: No Decelerations Short Term Variability: Present Informaticist Variability: Average (6-25) Contractions on Admission: < 5 Minutes Apart Intensity: Moderate Labs Laboratory Tests Test 10/02/23 15:55 10/02/23 16:48 Range/Units Urine Color YELLOW Urine Clarity CLEAR Urine pH 6.0 5-9 Urine Specific [place] >=1.030 1.016-1.022 Urine Protein NEGATIVE NEGATIVE Urine Glucose (UA) TRACE H NEGATIVE Urine Ketones NEGATIVE NEGATIVE Urine Nitrite NEGATIVE NEGATIVE Urine Bilirubin NEGATIVE NEGATIVE Urine Urobilinogen 4.0 < = 1.0 MG/DL Urine Leukocyte Esterase NEGATIVE NEGATIVE Urine RBC (Auto) TRACE H NEGATIVE Urine RBC RARE /HPF Urine WBC RARE /HPF Urine Squamous Epithelial Cells 0-2 /HPF Urine Crystals NONE /LPF Urine Bacteria TRACE /HPF Urine Casts NONE /LPF Urine Mucus SMALL H /LPF Urine Culture Indicated NO White Blood Count 14.2 H 4.3-11.0 10^3/uL Red Blood Count 5.00 3.80-5.11 10^6/uL Hemoglobin 14.4 11.5-16.0 g/dL Hematocrit 44 35-52 % Mean Corpuscular Volume 88 80-99 fL Mean Corpuscular Hemoglobin 29 25-34 pg Mean Corpuscular Hemoglobin Concent 33 32-36 g/dL Red Cell Distribution Width 12.9 10.0-14.5 % Platelet Count 321 130-400 10^3/uL Mean Platelet Volume 10.9 9.0-12.2 fL Immature Granulocyte % (Auto) 0 % Neutrophils (%) (Auto) 78 H 42-75 % Lymphocytes (%) (Auto) 15 12-44 % Monocytes (%) (Auto) 6 0-12 % Eosinophils (%) (Auto) 1 0-10 % Basophils (%) (Auto) 0 0-10 % Neutrophils # (Auto) 11.0 H 1.8-7.8 10^3/uL Lymphocytes # (Auto) 2.1 1.0-4.0 10^3/uL Monocytes # (Auto) 0.8 0.0-1.0 10^3/uL Eosinophils # (Auto) 0.2 0.0-0.3 10^3/uL Basophils # (Auto) 0.1 0.0-0.1 10^3/uL Immature Granulocyte # (Auto) 0.1 0.0-0.1 10^3/uL Syphilis Total Antibody Negative Negative OB - Assessment/Plan/Diagnosis Assessment Assessment: active labor Admission Dx IUP at 39 weeks 4 days Active labor History of COVID-19 this Admit for labor Admission Status: Inpatient Order (span 2 midnights) Reason for Inpatient Admission: IUP at 39 weeks 4 days Active labor History of COVID-19 this Admit for labor Plan Plan: Expectant Management SUMMER HERNANDEZ DO Oct 02, 2023 20:18
--- NOTE | 2023-10-02 20:26 | OB Labor & Delivery Record ---
L&D History Date of Service Date of Service: Oct 02, 2023 History Expected Date of Delivery: Oct 05, 2023 Gestational Age in Weeks: 39 Hx : 1 Hx Para: 0 Complications Events: Routine care Operative Indications (Cesarea: N/A-Vaginal Delivery Intrapartal Events: None L&D Stage1 Stage One Onset of Labor - Date: Oct 02, 2023 Onset of Labor - Time: 08:00 Monitors and Tracing Monitor Mode: External Heart Rate: 140 Monitor Decelerations: None Station: 0 Assisted Variability: Average (6-10) Short Term Variability: Present Presentation: Vertex Vital Signs VS - Last 72 Hours, by Label 10/02/23 10/02/23 10/02/23 10/02/23 16:14 16:26 17:00 17:15 Temp 36.6 Pulse 104 100 96 Resp 20 20 20 B/P (MAP) 124/72 123/56 (78) 108/56 (73) Pulse Ox 94 94 O2 Delivery Room Air Room Air Room Air Room Air 10/02/23 10/02/23 10/02/23 10/02/23 17:30 17:45 18:00 18:20 Pulse 99 93 98 105 Resp 20 20 20 20 B/P (MAP) 117/60 (79) 113/57 (75) 111/74 (86) 124/89 (101) O2 Delivery Room Air Room Air Room Air Room Air 10/02/23 18:43 Pulse 106 Resp 20 B/P (MAP) 125/58 (80) O2 Delivery Room Air Rupture of Membranes Spontaneous Ruture of Membrane: Yes Amniotic Membrane Rupture Time: 19:26 Amniotic Membrane Fluid Desc.: Green L&D Stage2 Stage Two Stage II Date: Oct 02, 2023 Stage II Time: 19:27 Monitors and Tracing Monitor Mode: External Heart Rate: 140 Monitor Decelerations: None Position: Left Occiput Anterior Presentation: Vertex Cord Descript/Complications Cord Vessel Description: 3 Vessels Delivery Type Delivery Method: Spontaneous Vaginal Anterior Shoulder: Right Episiotomy/Perineal Laceration Laceraction(s)/Extensions: No Condition of Infant Delivery Delivery Date & Time: 10/02/23 1927 1 minute Comment: 9 5 minute Comment: 9 Notes weight 2805g 6#3oz Condition of Infant Condition of Infant: Living Exam: No Observed Abnormalities Resuscitation Resuscitation: N/A - Spontaneous Resp L&D Stage3 Stage Three Stage III Date: Oct 02, 2023 Stage III Time: 19:33 Placenta Delivery Placenta Delivery: Spontaneous Delivery Summary Summary Estimated blood loss (mL): 300 Attending at delivery: Kelly Condition of Delivery Examined: Cervix Examined Post Hemorrhage: No (Uterine atony present w/o hemorrhage) Intervention Required Methergine 0.2 mg IM Hemabate 0.2 mg IM TXA 1 g IV Condition of Mother stable Condition of Infant (s) stable SUMMER HERNANDEZ DO Oct 02, 2023 20:26
[2023-10-02] MEDS ORDERED: ACETAMINOPHEN 500 MG TABLET ONE (20:36)
[2023-10-02] MEDS ORDERED: IBUPROFEN 600 MG TABLET PO ONE (20:37)
[2023-10-02] MEDS ORDERED: IBUPROFEN 800 MG TABLET PO ONE (20:38)
[2023-10-02] MEDS: ACETAMINOPHEN 500 MG TABLET PO SCH (20:40)
[2023-10-02] MEDS: IBUPROFEN 800 MG TABLET PO SCH (20:40)
[2023-10-02] MEDS ORDERED: HYDROmorphone INJECTION 2 MG/ML VIAL IV ONE (22:00)
[2023-10-02] MEDS ORDERED: CATHETER FLUSH 10 ML SYR IV SCH ×2 (22:00)
[2023-10-02] MEDS: DOCUSATE SODIUM 100 MG CAPSULE PO SCH (22:28)
[2023-10-03 01:00] VITALS: BP 118/66
[2023-10-03] MEDS: ACETAMINOPHEN 500 MG TABLET PO SCH ×3 (03:30→18:00)
[2023-10-03 04:00] VITALS: BP 113/71
[2023-10-03] MEDS: IBUPROFEN 800 MG TABLET PO SCH ×3 (04:37→20:06)
[2023-10-03] MEDS: D5 LR 1,000 ML IV SOLN 1,000 ML IV SCH (05:33)
[2023-10-03 06:07] LABS: BASOPHILS # (AUTO) 0.1 10^3/uL (0.0-0.1); BASOPHILS % (AUTO) 0 % (0-10); EOSINOPHILS # (AUTO) 0.1 10^3/uL (0.0-0.3); EOSINOPHILS % (AUTO) 0 % (0-10); HEMATOCRIT 37 % (35-52); HEMOGLOBIN 12.3 g/dL (11.5-16.0); LYMPHOCYTES % (AUTO) 15 % (12-44); MEAN CORPUSCULAR HEMOGLOBIN 29 pg (25-34); MEAN CORPUSCULAR HGB CONC 33 g/dL (32-36); MEAN CORPUSCULAR VOLUME 87 fL (80-99); MEAN PLATELET VOLUME 11.1 fL (9.0-12.2); MONOCYTES # (AUTO) 1.3 10^3/uL (0.0-1.0); MONOCYTES % (AUTO) 7 % (0-12); NEUTROPHILS # (AUTO) 15.7 10^3/uL (1.8-7.8); NEUTROPHILS % (AUTO) 78 % (42-75); PLATELET COUNT 266 10^3/uL (130-400); WHITE BLOOD COUNT 20.3 10^3/uL (4.3-11.0)
[2023-10-03] MEDS ORDERED: FLU QUADRIvalent (6 months+) 60 mcg/0.5 ml 2023-2024 (FLUARIX) IM ONE (06:45)
[2023-10-03 06:48] LABS: EOSINOPHILS % (MANUAL) 1 %; LYMPHOCYTES % (MANUAL) 14 %; MONOCYTES % (MANUAL) 7 %; NEUTROPHILS % (MANUAL) 78 %; PLATELET ESTIMATE ADEQUATE
[2023-10-03 06:49] LABS: RBC MORPH NORMAL
--- NOTE | 2023-10-03 08:18 | Postpartum Progress Note ---
Note Note Day #1 Subjective: Patient is without complaints. Ambulating, voiding. Tolerating a regular diet without nausea or vomiting. Normal lochia. Pain is well controlled with oral pain medications. Breast feeding. [] Objective: VSS AF Physical Exam: General - Alert and oriented, no apparent distress Breast symmetrical no erythema edema or engorgement Abdomen - Soft, appropriately tender to palpation, non-distended, fundus firm at umbilicus Extremities - no edema, negative Jose D's bilaterally Assessment: [] post- day # 1, status post Spontaneous vaginal delivery. Recovering well, hemodynamically stable Plan: Routine care. Encourage breast feeding. Encourage ambulation. Ferrous sulfate supplementation. Plan for discharge [] Vitals - Labs Vital Signs - I&O Vital Signs Date Time Temp Pulse Resp B/P (MAP) Pulse Ox O2 Delivery O2 Flow Rate FiO2 10/03/23 04:00 36.3 81 18 113/71 (85) 96 Room Air 10/03/23 01:00 36.6 88 18 118/66 (83) 95 Room Air 10/02/23 21:12 35.9 100 20 109/66 (80) Room Air 10/02/23 20:57 90 20 106/59 (75) Room Air 10/02/23 20:42 94 20 111/58 (75) 94 Room Air 10/02/23 20:27 93 20 108/58 (75) 94 Room Air 10/02/23 20:12 93 20 116/66 (83) 95 Room Air 10/02/23 19:57 36.6 94 20 116/61 (79) 94 Room Air 10/02/23 19:42 115 20 133/96 (108) 95 Room Air 10/02/23 19:14 36.1 127 20 136/91 (106) Room Air 10/02/23 18:59 120 20 125/65 (85) Room Air 10/02/23 18:43 106 20 125/58 (80) Room Air 10/02/23 18:20 105 20 124/89 (101) Room Air 10/02/23 18:00 98 20 111/74 (86) Room Air 10/02/23 17:45 93 20 113/57 (75) Room Air 10/02/23 17:30 99 20 117/60 (79) Room Air 11/29/23 17:15 96 20 108/56 (73) Room Air 10/02/23 17:00 100 20 123/56 (78) Room Air 10/02/23 16:26 36.6 104 20 124/72 94 Room Air 10/02/23 16:14 94 Room Air I & O 10/03/23 06:59 Intake Total 3500 ml Output Total 50 ml Balance 3450 ml Labs Laboratory Tests 10/02/23 15:55: Urine Color YELLOW, Urine Clarity CLEAR, Urine pH 6.0, Urine Specific [place] >=1.030, Urine Protein NEGATIVE, Urine Glucose (UA) TRACEH, Urine Ketones NEGATIVE, Urine Nitrite NEGATIVE, Urine Bilirubin NEGATIVE, Urine Urobilinogen 4.0, Urine Leukocyte Esterase NEGATIVE, Urine RBC (Auto) TRACEH, Urine RBC RARE, Urine WBC RARE, Urine Squamous Epithelial Cells 0-2, Urine Crystals NONE, Urine Bacteria TRACE, Urine Casts NONE, Urine Mucus SMALLH, Urine Culture Indicated NO 10/02/23 16:48: White Blood Count 14.2H, Red Blood Count 5.00, Hemoglobin 14.4, Hematocrit 44, Mean Corpuscular Volume 88, Mean Corpuscular Hemoglobin 29, Mean Corpuscular Hemoglobin Concent 33, Red Cell Distribution Width 12.9, Platelet Count 321, Mean Platelet Volume 10.9, Immature Granulocyte % (Auto) 0, Neutrophils (%) (Auto) 78H, Lymphocytes (%) (Auto) 15, Monocytes (%) (Auto) 6, Eosinophils (%) (Auto) 1, Basophils (%) (Auto) 0, Neutrophils # (Auto) 11.0H, Lymphocytes # (Auto) 2.1, Monocytes # (Auto) 0.8, Eosinophils # (Auto) 0.2, Basophils # (Auto) 0.1, Immature Granulocyte # (Auto) 0.1, Syphilis Total Antibody Negative 10/03/23 05:41: White Blood Count 20.3H, Red Blood Count 4.26, Hemoglobin 12.3, Hematocrit 37, Mean Corpuscular Volume 87, Mean Corpuscular Hemoglobin 29, Mean Corpuscular Hemoglobin Concent 33, Red Cell Distribution Width 12.8, Platelet Count 266, Mean Platelet Volume 11.1, Immature Granulocyte % (Auto) 1, Neutrophils (%) (Auto) 78H, Lymphocytes (%) (Auto) 15, Monocytes (%) (Auto) 7, Eosinophils (%) (Auto) 0, Basophils (%) (Auto) 0, Neutrophils # (Auto) 15.7H, Lymphocytes # (Auto) 3.0, Monocytes # (Auto) 1.3H, Eosinophils # (Auto) 0.1, Basophils # (Auto) 0.1, Immature Granulocyte # (Auto) 0.1, Neutrophils % (Manual) 78, Lymphocytes % (Manual) 14, Monocytes % (Manual) 7, Eosinophils % (Manual) 1, Platelet Estimate ADEQUATE, Blood Morphology Comment NORMAL SUMMER HERNANDEZ DO Oct 03, 2023 08:18
[2023-10-03] MEDS ORDERED: DOCU100C37 PO (08:20)
[2023-10-03] MEDS ORDERED: IBUP-1780 PO (08:20)
[2023-10-03] MEDS ORDERED: METHYLERGONOVINE INJ 0.2 MG/ML AMP IM ONE (08:21)
[2023-10-03] MEDS ORDERED: CARBOPROST 250 MCG/ML 1 ML AMPULE IM ONE (08:21)
[2023-10-03] MEDS ORDERED: TRANEXAMIC ACID 100 MG/ML 10 ML INJECTION IV ONE (08:21)
--- NOTE | 2023-10-03 08:21 | Discharge Summary ---
Discharge Summary Hospital Course Problems Reviewed?: Yes Hospital Course Date of Admission: Oct 02, 2023 at 16:25 Admission Diagnosis : Family Physician/Provider: Date of Discharge: 10/03/23 Discharge Diagnosis: Hospital Course: Patient was admitted for active labor and progressed to complete delivered vaginally and did very well. She did have some uterine atony and received TXA, Hemabate and Methergine. QBL was 300 cc. Her uterus did contract after receiving these and bimanual massage. Post she did very well and her hemoglobin was stable. She was discharged home with instructions Labs and Pending Lab Test: Laboratory Tests 10/02/23 15:55: Urine Color YELLOW, Urine Clarity CLEAR, Urine pH 6.0, Urine Specific [place] >=1.030, Urine Protein NEGATIVE, Urine Glucose (UA) TRACEH, Urine Ketones NEGATIVE, Urine Nitrite NEGATIVE, Urine Bilirubin NEGATIVE, Urine Urobilinogen 4.0, Urine Leukocyte Esterase NEGATIVE, Urine RBC (Auto) TRACEH, Urine RBC RARE, Urine WBC RARE, Urine Squamous Epithelial Cells 0-2, Urine Crystals NONE, Urine Bacteria TRACE, Urine Casts NONE, Urine Mucus SMALLH, Urine Culture Indicated NO 10/02/23 16:48: White Blood Count 14.2H, Red Blood Count 5.00, Hemoglobin 14.4, Hematocrit 44, Mean Corpuscular Volume 88, Mean Corpuscular Hemoglobin 29, Mean Corpuscular Hemoglobin Concent 33, Red Cell Distribution Width 12.9, Platelet Count 321, Mean Platelet Volume 10.9, Immature Granulocyte % (Auto) 0, Neutrophils (%) (Auto) 78H, Lymphocytes (%) (Auto) 15, Monocytes (%) (Auto) 6, Eosinophils (%) (Auto) 1, Basophils (%) (Auto) 0, Neutrophils # (Auto) 11.0H, Lymphocytes # (Auto) 2.1, Monocytes # (Auto) 0.8, Eosinophils # (Auto) 0.2, Basophils # (Auto) 0.1, Immature Granulocyte # (Auto) 0.1, Syphilis Total Antibody Negative 10/03/23 05:41: White Blood Count 20.3H, Red Blood Count 4.26, Hemoglobin 12.3, Hematocrit 37, Mean Corpuscular Volume 87, Mean Corpuscular Hemoglobin 29, Mean Corpuscular Hemoglobin Concent 33, Red Cell Distribution Width 12.8, Platelet Count 266, Mean Platelet Volume 11.1, Immature Granulocyte % (Auto) 1, Neutrophils (%) (Auto) 78H, Lymphocytes (%) (Auto) 15, Monocytes (%) (Auto) 7, Eosinophils (%) (Auto) 0, Basophils (%) (Auto) 0, Neutrophils # (Auto) 15.7H, Lymphocytes # (Auto) 3.0, Monocytes # (Auto) 1.3H, Eosinophils # (Auto) 0.1, Basophils # (Auto) 0.1, Immature Granulocyte # (Auto) 0.1, Neutrophils % (Manual) 78, Lymphocytes % (Manual) 14, Monocytes % (Manual) 7, Eosinophils % (Manual) 1, Platelet Estimate ADEQUATE, Blood Morphology Comment NORMAL Home Meds Active Valtrex (Valacyclovir HCl) 500 Mg Tablet 500 Mg PO BID Reported Omeprazole 20 Mg Capsule.dr 20 Mg PO DAILY Vitamins Tablet ( Vit/Iron Fumarate/FA) 28 Mg Iron-800 Mcg [place] 1 Each PO DAILY Patient Discharge Instructions Follow-up in 2 weeks for visit and then in 6 weeks for visit. Nothing in vagina no sex tampons or douching. Call if increased pain increased bleeding or temperature over 101 F Activity: Activity as Tolerated Driving Instructions: You May Drive NO SMOKING: NO SMOKING Nothing Inside Vagina: No Douching, No [place], No Tampons Discharge Diet: Regular Diet Symptoms to Report to : Fever Over 101 Degrees F, Vaginal Bleeding Increase, Vaginal Discharge Foul For Any Problems or Questions: Go to Emergency Room Discharge Physical Examination Allergies: Coded Allergies: No Known Drug Allergies (Unverified , 01/08/23) Vitals & I&Os Vital Signs Date Time Temp Pulse Resp B/P (MAP) Pulse Ox O2 Delivery O2 Flow Rate FiO2 10/03/23 04:00 36.3 81 18 113/71 (85) 96 Room Air Discharge Summary Date of Admission Oct 02, 2023 at 16:25 Date of Discharge Supervisory-Addendum Brief Verification & Attestation Participated in pt care: history, MDM, physical Personally performed: exam, history, MDM, supervision of care Care discussed with: Medical Student Procedures: n/a Results interpretation: Verified all documentation I personally saw and examined this patient SUMMER HERNANDEZ DO Oct 03, 2023 08:21
[2023-10-03 08:35] VITALS: BP 104/61
[2023-10-03 12:07] VITALS: BP 100/61
[2023-10-03] MEDS: DOCUSATE SODIUM 100 MG CAPSULE PO SCH ×2 (12:07→20:05)
[2023-10-03] MEDS: FERROUS SULFATE 325 MG (IRON) TABLET PO SCH (12:07)
[2023-10-03 17:58] VITALS: BP 115/61
[2023-10-04 00:01] VITALS: BP 100/51
[2023-10-04] MEDS: ACETAMINOPHEN 500 MG TABLET PO SCH ×3 (00:01→12:38)
[2023-10-04] MEDS: IBUPROFEN 800 MG TABLET PO SCH ×2 (03:55→12:38)
[2023-10-04 05:57] VITALS: BP 105/54
[2023-10-04] MEDS: PRENATAL VITAMIN TABLET PO SCH ×2 (06:38→09:26)
[2023-10-04] MEDS ORDERED: FLU QUADRIvalent (6 months+) 60 mcg/0.5 ml 2023-2024 (FLUARIX) IM ONE (06:45)
[2023-10-04 09:15] VITALS: BP 111/55
[2023-10-04] MEDS: FERROUS SULFATE 325 MG (IRON) TABLET PO SCH (09:26)
[2023-10-04] MEDS: DOCUSATE SODIUM 100 MG CAPSULE PO SCH (09:26)
[2023-10-04] MEDS ORDERED: Tetanus/Diphtheria/Pertussis (Acell) ADULT Vaccine 0.5 ML IM ONE (09:30)
[2023-10-04] MEDS ORDERED: MEASLES, MUMPS, RUBELLA VACCINE (MMR) SQ ONE (09:30)
[2023-10-04 12:40] VITALS: BP 112/58
== END 2023-10-04 13:30 | disposition home or self-care (01) | DRG 807 ==
LOC: WSo 15:41 → LDRP 15:42 → WSo 16:25 → LDRP 22:48
PROVIDERS: ADMIT Obstetrics & Gynecology; ATTEND Obstetrics & Gynecology
PROC: 10E0XZZ Delivery of Products of Conception, External Approach (ICD-10-PCS; principal; 2023-10-02)
DX: O62.2 Other uterine inertia (principal); Z37.0 Single live birth; Z3A.39 39 weeks gestation of pregnancy
CPT/HCPCS: 36415; 81000; 85007; 85025; 85027; 86780; 86850; 86900; 86901; 90686; 90707; 90715; 99212